=== PATIENT | female | born 1955 | race Caucasian/White ===

== ENCOUNTER 2019-03-04 17:46 | Inpatient (IN) | payer OTHER ==
[2019-03-04] VITALS (25 sets, daily range): BP systolic 80–110; BP diastolic 50–71
[~2019-03-04] VITALS: Ht 154.9 cm; Wt 64.2 kg
--- NOTE | 2019-03-04 19:05 | NUR ---
Pt remains in laboratory technician waiting for ICU bed. PT reports nausea. Zofran 4 mg IV given.
--- NOTE | 2019-03-04 19:14 | NUR ---
after zofran, pt vomited large amounts of undigested food. Mout washed out with water. Feeling better now.
--- NOTE | 2019-03-04 19:19 | NUR ---
hr 88-123, bp 111/70, o2 sat 96%
--- NOTE | 2019-03-04 23:42 | NUR ---
ASSUMED CARE OF PT. AT 1940 FROM NONPROFIT FUNDRAISER. PT. DENIES CHEST PAIN AT THIS TIME. RIGHT GROIN SITE C/D/I. NO HEMATOMA FROMATION. SENSATION INTACT IN RIGHT LOWER EXTREMITY. PT. CONVERTED OUT OF AFIB. DR. HAN NOTIFIED. PT. OK TO TRANSFER TO CCU. WILL CONTINUE TO MONITOR.
[2019-03-05] VITALS (36 sets, daily range): BP systolic 76–105; BP diastolic 34–60
--- NOTE | 2019-03-05 05:24 | NUR ---
NO OVERNIGHT EVENTS. N/V RESOLVED. RIGHT GROIN SITE C/D/I WITH NO HEMATOMA FORMATION. WHEN ASLEEP PT. CAN BE HYPOTENSIVE IN THE 80'S SYSTOLIC. PT. REMAINS SINUS BRADYCARDIC. PROGRESSING TOWARDS GOALS. WILL CONTINUE TO MONITOR.
[2019-03-05 05:48] LABS: HEMATOCRIT 32.3 % (37.0-47.0); HEMOGLOBIN 10.7 gm/dL (12.0-15.0); MCHC 33.3 g/dL (28.0-37.0); MCV 99.3 fL (80.0-100.0); RBC 3.25 mil/uL (4.20-5.00); WBC 14.6 thou/uL (4.0-11.0)
[2019-03-05 06:20] LABS: ALBUMIN 3.1 g/dL (3.4-5.0); CALCIUM 8.3 mg/dL (8.5-10.1); CREATININE 0.9 mg/dL (0.6-1.0); TOTAL BILIRUBIN 0.4 mg/dL (<0.1-1.0); TOTAL PROTEIN 6.1 g/dL (6.4-8.2)
[2019-03-05 06:24] LABS: TROPONIN-I 25.57 ng/mL (<0.06)
--- NOTE | 2019-03-05 07:27 | H ---
[facility] [place] [address] HISTORY AND PHYSICAL Name: GILDA GEORGES Room #: 244-P [facility] IN M.R.#: [id number] Admission: 03/04/19 Attend Phys: Fidencio Martinez MD Discharge: Date of : 51 Report #: [id number] THIS REPORT FOR: //name// CC: FAM unknown Fidencio Martinez DATE OF SERVICE: 03/04/2019 INDICATION: Chest pain. HISTORY OF PRESENT ILLNESS: This is a pleasant 63-year-old female with a history of tobacco use, presenting with acute onset of shortness of breath and chest pain. The patient had been home, playing with her grandchildren in the basement. As she walked up a flight of stairs, she developed shortness of breath and lightheadedness. She proceeded to lie down and developed substernal chest pain, nonradiating. She almost passed out. She was mildly diaphoretic. She offers no complaints of fever, chills, diarrhea or orthopnea. 911 was called. EMS performed an EKG, revealing acute ST segment elevation in the inferior leads. She was air-flighted from [place] to [facility] for emergent cardiac catheterization. PAST MEDICAL HISTORY: The patient admits to not seeing a doctor over the years. No apparent history of diabetes or high blood pressure. ALLERGIES: None. MEDICATIONS: None. SOCIAL HISTORY: Positive tobacco use, at least 1 pack per day. FAMILY HISTORY: Negative for premature CAD. REVIEW OF SYSTEMS: A full 10-point review of systems performed. Only the pertinent positives and negatives are described in the HPI. PHYSICAL EXAMINATION: VITAL SIGNS: Blood pressure is 110/60, heart rate is 105 beats per minute. GENERAL APPEARANCE: This is a well-developed, well-nourished female, in mild distress. HEENT: Normocephalic, atraumatic. Oral mucosa moist. NECK: Supple. LUNGS: Clear to auscultation. CARDIAC: Irregularly irregular, S1, S2 positive. ABDOMEN: Soft, nontender. EXTREMITIES: No cyanosis, no edema. NEUROLOGIC: Alert and oriented x 2. [facility] [address] [place] [address] HISTORY AND PHYSICAL Name: GILDA GEORGES Room #: 244-[facility] IN .R.#: [id number] Admission: 03/04/19 Attend Phys: Fidencio Martinez MD Discharge: Date of : 51 Report #: [id number] DIAGNOSTIC DATA: ECG reveals sinus rhythm with ST elevation in inferior leads and reciprocal ST depressions in V2. LABORATORY VALUES: Pending. ASSESSMENT AND PLAN: 1. Acute inferior wall myocardial infarction, the patient was given aspirin and nitro on the field. She will undergo an emergent cardiac catheterization. 2. Tobacco use, complete smoking cessation is advised. 3. Hypercholesterolemia, we will start a statin medication. 4. Atrial fibrillation, occurred during transit from [place], related to the acute myocardial infarction. Will need telemetry monitoring. She will also need an echo. <ELECTRONICALLY SIGNED> By: Fidencio Martinez MD 03/05/19 0727 1835 [id number] Fidencio Martinez MD /nt
--- NOTE | 2019-03-05 11:00 | NUR ---
0922- PT B/P 83/39. PHYSICIAN IN POD ROUNDING ON PT. PROVIDER AWARE OF LOW BLOOD PRESSURE AND PT BEING BRADYCARDIC WITH HR OF 44. ORDER RECIEVED TO INCREASE IV FLUIDS TO 100MLS/HR.
--- NOTE | 2019-03-05 11:36 | NUR ---
0918. PT C/O AFTER BREAKFAST TRAY PLACED IN FRONT OF HER. ZORFRAN GIVEN ORDERED. PT THEN REFUSED BREAKFAST BUT DID NOT HAVE ANY VOMITING.
--- NOTE | 2019-03-05 11:44 | EKG ---
[address] [place] [address] ELECTROCARDIOGRAM REPORT Name: GILDA GEORGES Room #: 244-P ADM IN M.R.#: [id number] Admission: 03/04/19 Attend Phys: Fidencio Martinez MD Discharge: Date of : 51 Report #: [id number] THIS REPORT FOR: //name// [facility] Test Date: 2019-03-05 Test Time: 07:08:21 Pat Name: GILDA GEORGES Department: Room: 244 P Gender: F Freight Associate: eze : [id number] Requested By: Fidencio Martinez Order Number: [id number] MD: Fidencio Martinez Measurements Intervals [place] Rate: 51 P: 35 HI: 146 QRS: -10 QRSD: 101 T: -25 QT: 517 QTc: 477 Interpretive Statements Sinus rhythm Low voltage, precordial leads RSR' in V1 or V2, right VCD No previous ECG available for comparison Electronically Signed On 03-05-2019 11:44:41 CDT by Fidencio Martinez [email or web address] <ELECTRONICALLY SIGNED> By: Fidencio Martinez MD 03/05/19 1144 0708 [id number] MD ANDRIA Galvez
[2019-03-06] VITALS (7 sets, daily range): BP systolic 92–113; BP diastolic 51–64
--- NOTE | 2019-03-06 04:06 | NUR ---
NO OVERNIGHT EVENTS. RIGHT GROIN SITE C/D/I, NO HEMATOMA FORMATION. PT. SLEPT THROUGH THE NIGHT. PT. PROGRESSING TOWARDS GOALS. WILL CONTINUE TO MONITOR.
[2019-03-06] MEDS ORDERED: CHANTIX0.5 MG PO (08:11)
[2019-03-06] MEDS ORDERED: ASPIRIN325 PO (08:11)
[2019-03-06] MEDS ORDERED: LIPITOR40 MG PO (08:11)
[2019-03-06] MEDS ORDERED: EFFIENT10 MG PO (08:11)
[2019-03-06 08:29] LABS: HEMATOCRIT 31.5 % (37.0-47.0); HEMOGLOBIN 10.1 gm/dL (12.0-15.0); MCH 32.2 pg (26.0-34.0); MCHC 32.1 g/dL (28.0-37.0); MCV 100.6 fL (80.0-100.0); RBC 3.13 mil/uL (4.20-5.00); RDW 14.3 % (10.5-14.5); WBC 11.4 thou/uL (4.0-11.0)
[2019-03-06 08:43] LABS: CALCIUM 8.4 mg/dL (8.5-10.1); CREATININE 0.9 mg/dL (0.6-1.0); POTASSIUM 3.5 mmol/L (3.5-5.1)
[2019-03-06 08:45] LABS: TROPONIN-I 18.73 ng/mL (<0.06)
--- NOTE | 2019-03-06 09:13 | CATHLAB ---
[place] [address] [facility] [place] [address] INVASIVE PROCEDURE REPORT Name: GILDA GEORGES Room #: 200-I ADM IN [facility]#: [id number] Admission: 03/04/19 Attend Phys: Fidencio Martinez MD Discharge: Date of : 51 Report #: [id number] THIS REPORT FOR: //name// APPROVED REPORT Study performed: 03/04/2019 17:40:35 Patient Details Patient Status: ED Room #: The patient is a 63 year-old female Event Personnel Fidencio Martinez Agricultural Research Technician, Kelsey Koenig RN, Seamus Culp, Andre Dial RTR Scrub Procedures Performed Left Heart Cath w/or w/o Coronaries [id number] [facility] Revasc AMI Total/Sub Single RCA C9606 AMIREVSING Indication Dizziness and vertigo, STEMI (>0 to less than or equal to 6 hours), Dyspnea, Chest pain Risk Factors Hypercholesterolemia, Tobacco History () Procedure Narrative The Right Groin^ was infiltrated with 1% Lidocaine subcutaneous anesthesia. A PINNACLE 6FR Sheath #[id number] sheath was inserted into the RFA^. Coronary angiography was performed using coronary diagnostic catheters. The right coronary system was accessed and visualized with a JR4 GUIDE catheter. The left coronary system was accessed and visualized with a JL4 catheter. The left ventricle was accessed and visualized with a PIGTAIL catheter. Left ventricular/Aortic Valve gradient assessed via catheter pullback. Left ventriculogram was performed in 30 degree projection. Closure device was deployed with a 6 Fr MYNXGRIP 6/7F #[id number]. The patient tolerated the procedure well and there were no complications associated with the procedure. There was no hematoma. Intraoperative Conscious Sedation Sedation start time: 17.49 Case end Time: 16.49 Fentanyl 25 mcg Versed 1 mg [facility] [place] [address] INVASIVE PROCEDURE REPORT Name: GILDA GEORGES PATO Room #: 200-I [facility] IN ..#: [id number] Admission: 03/04/19 Attend Phys: Fidencio Martinez MD Discharge: Date of : 51 Report #: [id number] Fluoro Time: 10.45 minutes Dose: DAP 54637.00 cGycm2 1634 mGy Contrast Type and Amount: Omnipaque 165 ml Coronary Angiography The patient's coronary anatomy is right dominant. Diagnostic Cath Left Main This is a patent vessel, with no flow-limiting lesions. LAD This is a moderate size caliber vessel, traversing the anterior wall and terminating at the apex. There is mild disease in the mid segment, 20%. Diagonal 1 This is a patent vessel, with no flow-limiting lesions. Circumflex This supplies one obtuse marginal artery. OM1 This is a moderate size caliber vessel, with mild disease in the proximal segment, 20%. Right Coronary This is a dominant vessel with a severe occlusion in the mid segment, 80%. After the takeoff of the PDA, there is a severe occlusion, 99%. R PDA This is a patent vessel, with no flow-limiting lesions. RPLV This is a patent vessel, with no flow-limiting lesions. Left Ventriculography The left ventricle is normal in size with abnormal contractility. The left ventricular ejection fraction is estimated to be 40-45%. There is hypokinesis of the mid to basal inferior wall. Hemodynamics The aortic pressure is 112/71 mmHg with a mean of 89 mmHg. The left ventricular pressure is 107/15 mmHg with a mean of mmHg. The left ventricular end diastolic pressure is 23 mmHg. PCI Technique Lesion Percutaneous coronary intervention was performed on the distal right coronary artery. The lesion stenosis prior to intervention was 99% with ANGELICA 3 flow. A VISTA 6FR JR 4 #[id number] Guide Catheter was used to engage the ostium. A Luge Wire .014 x 182CM #[id number] Interventional Guidewire was used to cross the lesion. BALLOON DILATION A Balloon catheter TREK RX 2.25 X 12 #[id number] was inserted and inflated up to 8.00atm for 22seconds. Additional Inflation: 8.00atm for 15seconds. [facility] [address] [place] [address] INVASIVE PROCEDURE REPORT Name: GILDA GEORGES Room #: 200-I [facility] IN .R.#: [id number] Admission: 03/04/19 Attend Phys: Fidencio Martinez MD Discharge: Date of : 51 Report #: [id number] STENT DEPLOYMENT A drug-eluting stent RESOLUTE SWETA RX 2.5 X 18 #[id number] was inserted and inflated up to 10.00atm for 20seconds. POST STENT DEPLOYMENT BALLOON DILATION A Balloon catheter TREK NC RX 2.5 X 15 #[id number] was inserted and inflated up to 14.00atm for 12seconds. Final angiography reveals 0 % stenosis with ANGELICA 3 flow. PCI Technique Lesion 2 Percutaneous Coronary Intervention was performed on the mid right coronary artery. The lesion stenosis prior to intervention was 80% with ANGELICA 3 flow. A VISTA 6FR JR 4 #[id number] Guide Catheter was used to engage the ostium. A Luge Wire .014 x 182CM #[id number] Interventional Guidewire was used to cross the lesion. Stent Deployment A bare metaldrug-eluting stent RESOLUTE SWETA RX 3.0 X 18 #[id number] was inserted and inflated up to 18.00atm for 22seconds. Post Stent Deployment Balloon Dilation A Balloon catheter Euphora NC RX 3.5 x 15 #[id number] was inserted and inflated up to 15.00atm for 13seconds. Additional Inflation: 15.00atm for 40seconds. Final angiography reveals 0 % stenosis with ANGELICA 3 flow. Conclusion 1. Successful insertion of drug-eluting stents into the mid and distal segments of the RCA. 2. Mild disease in the LAD and OM1. 3. Mild to moderate segmental LV dysfunction. 4. Recommend dual antiplatelet therapy and aggressive risk factor management. <ELECTRONICALLY SIGNED> By: Fidencio Martinez MD 03/05/190 39 39 Fidencio Martinez MD /INF
--- NOTE | 2019-03-06 12:26 | NUR ---
ASSUMED CARE AT 0700, SHIFT ASSESSMENT DONE, MEDS GIVEN, VSS. DENIES PAIN, NAUSEA, VOMITING. WORKED WITH CARDIAC REHAB, WALKED AROUND THE UNIT, DENIES ANY CHEST PAIN, SOB. DISCHARGE ORDER RECEIVED. PERIPHERAL IV WAS TAKEN OUT. PRESCRIPTION GIVEN. LEFT WITH FAMILY AT 1200 PM.
--- NOTE | 2019-03-08 07:42 | D ---
[facility] [place] [address] DISCHARGE SUMMARY Name: GILDA GEORGES Room #: 200-I [facility] IN ..#: [id number] Admission: 03/04/19 Attend Phys: Fidencio Martinez MD Discharge: 03/06/19 Date of : 51 Report #: [id number] THIS REPORT FOR: //name// CC: FAM unknown Fidencio Martinez DATE OF SERVICE: 03/06/2019 FINAL DIAGNOSES: 1. Inferior wall myocardial infarction, status post percutaneous coronary intervention. 2. Paroxysmal atrial fibrillation. 3. Sinus bradycardia. 4. Tobacco use. 5. Hypercholesterolemia. HOSPITAL COURSE: Please see the original H and P for full details. The patient presented with acute onset of chest pain at home. EMS diagnosed the patient with an acute inferior wall OK. The patient was airlifted to [facility] for an emergent cardiac catheterization. When she arrived to [facility], the rhythm had changed to atrial fibrillation. A cardiac catheterization revealed mild disease in the left coronary system. She had severe occlusions in the RCA, undergoing placement of a drug-eluting stent to the mid and distal segments of the RCA. EF is in the 40% range. After the procedure, the patient was admitted to the ICU. Overnight, she did convert to sinus rhythm. She has a baseline sinus bradycardia, unable to add a beta sirena. Her blood pressure is on the low side, unable to add an HOWARD inhibitor or ARB medication. She is stable with ambulation. She has not had any further episodes of angina. She is stable for discharge. She will be discharged on Effient 10 mg, aspirin once a day, Lipitor 40 mg and Chantix daily. She is given a followup appointment in a few weeks. <ELECTRONICALLY SIGNED> By: Fidencio Martinez MD 03/08/19 0742 0827 [id number] Fidencio Martinez MD /nt
== END 2019-03-06 12:15 | disposition home or self-care (01) | DRG 247 ==
LOC: CATH 17:46 → ICU 18:47 → 2N 18:47 → ICU 03-05 09:46 → 2N 03-06 07:28 → ENTRNSPT 03-06 12:04 → 2N 03-06 12:15
PROVIDERS: ADMIT Internal Medicine Cardiovascular Disease
PROC: 4A023N7 Measurement of Cardiac Sampling and Pressure, Left Heart, Percutaneous Approach (ICD-10-PCS; principal; 2019-03-04)
PROC: 027034Z Dilation of Coronary Artery, One Artery with Drug-eluting Intraluminal Device, Percutaneous Approach (ICD-10-PCS; 2019-03-04)
PROC: 02703DZ Dilation of Coronary Artery, One Artery with Intraluminal Device, Percutaneous Approach (ICD-10-PCS; 2019-03-04)
PROC: B2111ZZ Fluoroscopy of Multiple Coronary Arteries using Low Osmolar Contrast (ICD-10-PCS; 2019-03-04)
PROC: B2151ZZ Fluoroscopy of Left Heart using Low Osmolar Contrast (ICD-10-PCS; 2019-03-04)
DX: I21.19 ST elevation (STEMI) myocardial infarction involving other coronary artery of inferior wall (principal); E78.00 Pure hypercholesterolemia, unspecified; I48.0 Paroxysmal atrial fibrillation; I95.9 Hypotension, unspecified; I25.10 Atherosclerotic heart disease of native coronary artery without angina pectoris; Z72.0 Tobacco use
CPT/HCPCS: 10078; 10203